=== PATIENT | male | born 1990 | race Caucasian/White ===

== ENCOUNTER 2017-10-10 20:45 | Inpatient (IN) | payer BC ==
[2017-10-10 21:44] LABS: Hematocrit 46 % (42-52); Hemoglobin 15.7 g/dl (14.0-18.0); Mean Corpuscular HGB Conc 34 g/dl (31-36); Mean Corpuscular Hemoglobin 31 pg (27-31); Mean Corpuscular Volume 89 fL (80-94); Mean Platelet Volume 7.7 um3 (7.4-10.4); Platelet Count 308 10^3/ul (150-450); Red Blood Count 5.17 10^6/ul (4.0-5.4); Red Cell Distribution Width 14 % (10.5-15); White Blood Count 9.4 10^3/ul (3.5-10.8)
[2017-10-10 21:46] LABS: Urine Appearance Clear; Urine Blood Negative (Negative); Urine Color Yellow; Urine Ketones Negative (Negative); Urine Protein Negative (Negative); Urine Specific Gravity 1.021 (1.010-1.030); Urine Urobilinogen Negative (Negative)
[2017-10-10 22:00] LABS: EGFR Non-African American 92.5 (>60)
[2017-10-10 22:20] LABS: ABS Basophils 0 10^3/ul (0-0.2); ABS Eosinophils 0.2 10^3/ul (0-0.6); ABS Monocytes 0.8 10^3/ul (0-0.8); ABS Neutrophils 5.4 10^3/ul (1.5-7.7); ABS Nucleated RBC 0 10^3/ul; Eosinophil % 2.1 % (0-6); Lymphocyte % 32.1 % (25-47); Nucleated Red Blood Cells % 0.1
[2017-10-11] MEDS ORDERED: Al Hydrox/Mg Hydrox/Simet LIQ* 30 ML UDC PO PRN (03:34)
--- NOTE | 2017-10-11 04:25 | ED ---
Reyna Saab Nilda, scribed for Andrey Melo MD on 10/10/17 at 2133 . Psychiatric Complaint - HPI Summary HPI Summary: This patient is a 65 year old M presenting to [facility] accompanied by family with a chief complaint of constant severe roseann-like symptoms for the past 3 days. Symptoms aggravated and alleviated by nothing. Patient reports chronic SI, chronic anxiety, chronic depression, hallucinations (auditory and visual), and insomnia (last slept yesterday). Patient denies HI. Father states pt was doing well, but was sick with PNA in July 2017 and has not recovered psychiatrically since. Medications include Rexulti. Pt was recently taken off of max dose Prozac (80 mg) today with plan to switch to Clozaril, as recommended by his psychiatrist. PMHx includes Schizoaffective bipolar disorder , tremors, chronic SI, and chronic anxiety. He states he saw his psychiatrist ( Dr. Epstein in [place]) a few hours ago, who advised him to come to ED and stay safe long enough for new drug to be introduced. Pt states a few weeks ago he was treated for SI in [facility], had reccurent SI after D/C, and was denied entry to psych [facility]. - History Of Current Complaint Chief Complaint: EDMentalHealth Time Seen by Provider: 10/10/17 21:14 Hx Obtained From: Patient, Family/Green Hide Inspector - father Onset/Duration: Sudden Onset Timing: Constant Severity Currently: Severe Character: Manic, Depressed, Anxious Aggravating Factor(s): Nothing Alleviating Factor(s): Nothing Associated Signs And Symptoms: Positive: Hallucinating Related History: Positive For: Prior Psychiatric Issues Has Suicidal: Reports: Thoughts Has Homicidal: Denies: Thoughts, With A Plan - Allergies/Home Medications Allergies/Adverse Reactions: Allergies Allergy/AdvReac Type Severity Reaction Status Date / Time No Known Allergies Allergy Verified 10/10/17 20:59 Home Medications: Home Medications Ashwagandha 1 tab PO DAILY 10/10/17 [History Confirmed 10/10/17] Brexpiprazole (NF) [Rexulti (NF)] 4 mg PO DAILY 10/10/17 [History Confirmed ] FLUoxetine CAP* [PROzac CAP*] 80 mg PO DAILY 10/10/17 [History Confirmed ] Magnesium Chloride EC TAB* [Slow Mag EC TAB*] 64 mg PO DAILY 10/10/17 [History Confirmed 10/10/17] Mirtazapine TAB* [Remeron TAB*] 15 mg PO BEDTIME 10/10/17 [History Confirmed ] [place]-3 Fatty Acids (Nf) [Fish Oil (NF)] 1,000 mg PO BID 10/10/17 [History Confirmed 10/10/17] clonazePAM TAB(*) [KlonoPIN TAB(*)] 0.5 mg PO QID 10/10/17 [History Confirmed ] PMH/Surg Hx/FS Hx/Imm Hx Sensory History: Denies: Hx Legally Blind EENT History: Denies: Hx Deafness Psychiatric History: Reports: Hx Anxiety, Hx Depression, Hx Community Mental Health Tx, Hx Schizophrenia, Hx Bipolar Disorder, Hx Suicide Attempt Infectious Disease History: No Infectious Disease History: Denies: Traveled Outside the [place] in Last 30 Days - Social History Lives: With Family Review of Systems Positive: Other - chronic tremors Positive: Anxious, Depressed, Other - manic, hallucination, SI, insomnia; negative HI All Other Systems Reviewed And Are Negative: Yes Physical Exam - Summary Physical Exam Summary: Appearance: Well appearing, no pain distress Skin: warm, dry, reflects adequate perfusion, No evidence of self injury Head/face: normal Eyes: EOMI, CHAVA ENT: normal Neck: supple, non-tender Respiratory: CTA, breath sounds present Cardiovascular: RRR, pulses symmetrical Abdomen: non-tender, soft Bowel: present Musculoskeletal: normal, strength/ROM intact Neuro: normal, sensory motor intact, A&Ox3, tremulous Psych: anxious, no HI, no SI, + hallucinations without paranoia Triage Information Reviewed: Yes Vital Signs On Initial Exam: Initial Vitals Temp Pulse Resp BP Pulse Ox 97.5 F 108 18 169/107 99 10/10/17 20:54 10/10/17 20:54 10/10/17 20:54 10/10/17 20:54 10/10/17 20:54 Vital Signs Reviewed: Yes Diagnostics - Vital Signs Vital Signs Temp Pulse Resp BP Pulse Ox 10/10/17 20:54 97.5 F 108 18 169/107 99 - Laboratory Lab Results: Lab Results 10/10/17 10/10/17 10/10/17 Range/Units 21:33 21:33 21:35 WBC (3.5-10.8) 10^3/ul RBC (4.0-5.4) 10^6/ul Hgb (14.0-18.0) g/dl Hct (42-52) % MCV (80-94) fL MCH (27-31) pg MCHC (31-36) g/dl RDW (10.5-15) % Plt Count (150-450) 10^3/ul MPV (7.4-10.4) um3 Neut % (Auto) (38-83) % Lymph % (Auto) (25-47) % Morehouse % (Auto) (0-7) % Eos % (Auto) (0-6) % Baso % (Auto) (0-2) % Absolute Neuts (auto) (1.5-7.7) 10^3/ul Absolute Lymphs (auto) (1.0-4.8) 10^3/ul Absolute Monos (auto) (0-0.8) 10^3/ul Absolute Eos (auto) (0-0.6) 10^3/ul Absolute Basos (auto) (0-0.2) 10^3/ul Absolute Nucleated RBC 10^3/ul Nucleated RBC % Sodium 136 L (139-145) mmol/L Potassium TNP Chloride 101 (101-111) mmol/L Carbon Dioxide 22 (22-32) mmol/L Anion Gap 13 H (2-11) mmol/L BUN 13 (6-24) mg/dL Creatinine 0.98 (0.67-1.17) mg/dL Est GFR ( Amer) 118.9 (>60) Est GFR (Non-Af Amer) 92.5 (>60) BUN/Creatinine Ratio 13.3 (8-20) Glucose 97 (70-100) mg/dL Calcium 10.0 (8.6-10.3) mg/dL Total Bilirubin 0.40 (0.2-1.0) mg/dL AST TNP ALT 95 H (7-52) U/L Alkaline Phosphatase 61 (34-104) U/L Total Protein 8.5 (6.4-8.9) g/dL Albumin 4.7 (3.2-5.2) g/dL Globulin 3.8 (2-4) g/dL Albumin/Globulin Ratio 1.2 (1-3) TSH 12.47 H (0.34-5.60) mcIU/mL Urine Color Yellow Urine Appearance Clear Urine pH 6.0 (5-9) Ur Specific Hawley 1.021 (1.010-1.030) Urine Protein Negative (Negative) Urine Ketones Negative (Negative) Urine Blood Negative (Negative) Urine Nitrate Negative (Negative) Urine Bilirubin Negative (Negative) Urine Urobilinogen Negative (Negative) Ur Leukocyte Esterase Negative (Negative) Urine Glucose Negative (Negative) Salicylates < 2.50 (<30) mg/dL Urine Opiates Screen None detected (None Detect) Acetaminophen < 15 mcg/mL Ur Barbiturates Screen None detected (None Detect) Ur Phencyclidine Scrn None detected (None Detect) Ur Amphetamines Screen None detected (None Detect) U Benzodiazepines Scrn None detected (None Detect) Urine Cocaine Screen None detected (None Detect) U Cannabinoids Screen None detected (None Detect) Serum Alcohol < 10 (<10) mg/dL 10/10/17 10/10/17 Range/Units 21:35 22:36 WBC 9.4 (3.5-10.8) 10^3/ul RBC 5.17 (4.0-5.4) 10^6/ul Hgb 15.7 (14.0-18.0) g/dl Hct 46 (42-52) % MCV 89 (80-94) fL MCH 31 (27-31) pg MCHC 34 (31-36) g/dl RDW 14 (10.5-15) % Plt Count 308 (150-450) 10^3/ul MPV 7.7 (7.4-10.4) um3 Neut % (Auto) 56.9 (38-83) % Lymph % (Auto) 32.1 (25-47) % Morehouse % (Auto) 8.4 H (0-7) % Eos % (Auto) 2.1 (0-6) % Baso % (Auto) 0.5 (0-2) % Absolute Neuts (auto) 5.4 (1.5-7.7) 10^3/ul Absolute Lymphs (auto) 3.0 (1.0-4.8) 10^3/ul Absolute Monos (auto) 0.8 (0-0.8) 10^3/ul Absolute Eos (auto) 0.2 (0-0.6) 10^3/ul Absolute Basos (auto) 0 (0-0.2) 10^3/ul Absolute Nucleated RBC 0 10^3/ul Nucleated RBC % 0.1 Sodium (139-145) mmol/L Potassium TNP Chloride (101-111) mmol/L Carbon Dioxide (22-32) mmol/L Anion Gap (2-11) mmol/L BUN (6-24) mg/dL Creatinine (0.67-1.17) mg/dL Est GFR ( Amer) (>60) Est GFR (Non-Af Amer) (>60) BUN/Creatinine Ratio (8-20) Glucose (70-100) mg/dL Calcium (8.6-10.3) mg/dL Total Bilirubin (0.2-1.0) mg/dL AST TNP ALT (7-52) U/L Alkaline Phosphatase (34-104) U/L Total Protein (6.4-8.9) g/dL Albumin (3.2-5.2) g/dL Globulin (2-4) g/dL Albumin/Globulin Ratio (1-3) TSH (0.34-5.60) mcIU/mL Urine Color Urine Appearance Urine pH (5-9) Ur Specific Hawley (1.010-1.030) Urine Protein (Negative) Urine Ketones (Negative) Urine Blood (Negative) Urine Nitrate (Negative) Urine Bilirubin (Negative) Urine Urobilinogen (Negative) Ur Leukocyte Esterase (Negative) Urine Glucose (Negative) Salicylates (<30) mg/dL Urine Opiates Screen (None Detect) Acetaminophen mcg/mL Ur Barbiturates Screen (None Detect) Ur Phencyclidine Scrn (None Detect) Ur Amphetamines Screen (None Detect) U Benzodiazepines Scrn (None Detect) Urine Cocaine Screen (None Detect) U Cannabinoids Screen (None Detect) Serum Alcohol (<10) mg/dL Result Diagrams: 10/10/17 21:35 10/10/17 22:36 Lab Statement: Any lab studies that have been ordered have been reviewed, and results considered in the medical decision making process. - EKG 2140 Cardiac Rate: Tachycardia EKG Rhythm: Sinus Tachycardia - [address] Segment: Normal EKG Interpretation: nml axis, nml interval Course/Dx - Course Course Of Treatment: Pt with shelter MH problems with dx of schizoaffective do bipolar type. Recommended by primary psychiatrist for admission and change of med to clozaril. Accepted for admission after crisis eval on voluntary basis. Assessment/Plan: 2143 Pt is medically cleared for [facility]. - Differential Dx/Clinical Impression Provider Diagnosis: Unspecified psychosis, Schizoaffective disorder, bipolar type - Physician Notifications Discussed Care Of Patient With: Ifeanyi - Associate of Dr. Brunner Psychiatry Time Discussed With Above Provider: 00:28 Instructed by Provider To: Admit As Inpatient Discharge - Sign-Out/Discharge Documenting (check all that apply): Discharge - admit to Psychiatry - Discharge Plan Condition: Stable Disposition: PSYCHIATRIC FACILITY-[facility] - Billing Disposition and Condition Condition: STABLE Disposition: HOSP-[facility] The documentation as recorded by the Reyna pickard Nilda accurately reflects the service I personally performed and the decisions made by Lorie mark Kirk, MD.
[2017-10-11] MEDS ORDERED: OLANzapine TAB* 5 MG PO SCH (09:00)
[2017-10-11] MEDS ORDERED: ALPRAZolam TAB* 0.5 MG PO ONE (09:00)
[2017-10-11] MEDS: Vitamin THERAPEUTIC TAB PO SCH (09:35)
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
[2017-10-11] MEDS ORDERED: ALPRAZolam TAB* 0.5 MG PO PRN (15:06)
[2017-10-11] MEDS: PTO:Brexpiprazole (NF) 3 MG TAB PO SCH (21:05)
[2017-10-11] MEDS: BREXPIPRAZOLE 0.5 MG PO SCH (21:06)
[2017-10-11] MEDS: Mirtazapine TAB* 15 MG PO PRN (21:08)
[2017-10-12 07:19] LABS: EGFR Non-African American 94.7 (>60)
[2017-10-12] MEDS: Acetaminophen TAB* 325 MG PO PRN (08:37)
[2017-10-12] MEDS: Vitamin THERAPEUTIC TAB PO SCH (08:38)
[2017-10-12] MEDS ORDERED: ALPRAZolam TAB* 0.5 MG PO ONE (09:00)
[2017-10-12] MEDS ORDERED: Gadoteridol* (CONTRAST) 279.3 MG/ML 10 ML IV ONE (10:18)
--- NOTE | 2017-10-12 11:05 | RAD ---
HISTORY: Psychosis, visual hallucination COMPARISONS: None TECHNIQUE: The following sequences were obtained of the head: Sagittal T1-weighted images, axial T2-weighted images, axial FLAIR images, axial susceptibility weighted images, axial T1-weighted images, coronal T1, T2 and FLAIR images through the mesial temporal lobes. Additionally, axial diffusion-weighted images were obtained with calculated apparent diffusion coefficients. Additionally, sagittal and axial T1 weighted images with thin section coronal T1-weighted images through the mesial temporal lobes were obtained after contrast enhancement with a gadolinium-based intravenous contrast agent. FINDINGS: HEMORRHAGE/INFARCT: There is no hemorrhage or acute infarct. MASSES/SHIFT: There is no mass or shift. EXTRA-AXIAL SPACES/MENINGES: There are no extra-axial fluid collections. SULCI AND VENTRICLES: The sulci and ventricles are normal in size and position for the patient's stated age. CEREBRUM: There are no focal brain parenchymal abnormalities. The mesial temporal lobes are symmetric in size, architecture, and signal intensity. The collateral white matter bundles are symmetric. The mamillary bodies and temporal horns of the lateral ventricles are symmetric in size. There is no appreciable cortical dysplasia or heterotopia. BRAINSTEM: There are no focal parenchymal abnormalities. CEREBELLUM: There are no focal parenchymal abnormalities. The cerebellar tonsils are normal in size and position. SELLA: The sella is normal. PINEAL: The pineal region is clear. CP ANGLE/TEMPORAL BONES: The labyrinthine structures are grossly normal. VESSELS: Normal flow-voids are noted within the visualized vertebral vasculature. DIFFUSION ABNORMALITIES: There are no diffusion abnormalities. PARANASAL SINUSES/MASTOIDS: The paranasal sinuses are clear. ORBITS: The orbits are unremarkable. BONES AND SOFT TISSUE: No bone or soft tissue abnormalities are noted. OTHER: There is no abnormal enhancement. IMPRESSION: UNREMARKABLE MRI OF THE BRAIN. THE MESIAL TEMPORAL LOBES ARE SYMMETRIC. THERE IS NO APPRECIABLE CORTICAL DYSPLASIA OR HETEROTOPIA. THERE IS NO ABNORMAL ENHANCEMENT.
--- NOTE | 2017-10-12 13:39 | PN ---
Subjective - Subjective Subjective: psychiatric attending progress note met with july to discuss result of his MRI which was negative. Patient was relieved but also dissappointed that the test didnt show a reason for his symptoms. EEG was also completed yesterday late in the day but results not yet available. Patient attended groups. He has been cooperative and no behavioral management issues reported. He is compliant with medications. I shared with him that I spoke with his doctor yesterday and that we coordinated treatment. If EEG is negative It is my intention to start patient on Clozaril. I have registered patient at [facility] in anticipation that EEG will be negative. MSE: patient reports mood has been close to euthymic since admission He has been experiencing intermittent infrequent AH which are computer noises. He denies grandiose or persecutory delusions at present time. His thought process is orgaized and goal directed. He denies suicidal ideation at present time He is not agitated and reports that he feels safe on this unit. insight and judgment are quite good. Labs: CBC shows ANC of 5300 CMP remarkable only for elevated ALT in 80's hep B and hep C screening labs were both negative urine tox screen negative;' Urinanalysis was negative. thyroid fucntion tests were abnormal: with TSH of >12, T4 in 4.6, free T4 of 0.67 thryroid peroxidase antibodies negative Impression: SChizoaffective Disroder bipolar type rapidly cycling rule out TLE admitted for Clozaril trial newly diagnosed hypothyroidism. TPA negative Plan: will get sonogram of thyroid to rule out mass will start synthroid 50 mcg qam will refer patient back to PCP on discharge have completed labs and ekg needed to start Clozapine
--- NOTE | 2017-10-12 16:53 | PN ---
MHU: Group Therapy Note - Service Type Service Type: [id number] Group Psychotherapy - Medication Education Group: Patient was attentive and participatory in group, and remained in good behavioral control. Patient expressed positive insights regarding relevant treatment interventions. Patient stated understanding of material discussed and had appropriate questions.
[2017-10-12] MEDS: PTO:Brexpiprazole (NF) 3 MG TAB PO SCH (21:13)
[2017-10-12] MEDS: BREXPIPRAZOLE 0.5 MG PO SCH (21:13)
[2017-10-12] MEDS: Mirtazapine TAB* 15 MG PO PRN (21:14)
[2017-10-13] MEDS: Vitamin THERAPEUTIC TAB PO SCH (08:27)
[2017-10-13] MEDS: Levothyroxine TAB* 50 MCG TAB PO SCH (08:27)
--- NOTE | 2017-10-13 10:11 | PN ---
Subjective - Subjective Subjective: Psychiatric Attending Progress Note EEG without any evidence of epileptiform activity MRI of the head negative Met with patient and shared above results. also explained to him that he is hypothyroid and discussed causes, and treatment. patient gave informed consent for syntroid 50 mcg daily denies symptoms of hypothryoidism other than lethargy. reports he was treated by Dr. Epstein in past with thryoid but that it was discontinued denies family history of thyroid cancer, hypo or hyper thryoidism MSE: well related. denies any auditory hallucinations since admission here. denies suicidal ideation at present time mood: appears euthymic. patient does report being delusional several days ago believing that his feet were having a conversation with each other. cooperative attitude. alert and fully oriented. speech normal RR and V. organized and goal directed having hypnogogic and hypnopompic hallucinations (occurr just as he is falling asleep and waking up) EKG: NSR and QTc is in 400's Impression: SAD bipolar type. rapid cycling. currently euthymic hypothyroidism Plan: start clozaril trial preclozaril workup is negative ANC is 5300 patient registered with [facility] program patient gave informed consent to start clozapine after discussion of risks/benefits. start clozapine 12.5 mg BID X 3 doses then increase to 25 mg BID will taper rexulti to 3 mg qhs remeron 15 mg qhs xanax 0.5 mg q4h prn anxiety
--- NOTE | 2017-10-13 15:11 | EEG ---
ELECTROENCEPHALOGRAPHY: DATE OF STUDY: 10/12/17 - ROOM #215 ORDERING PHYSICIAN: Dr. Aldana.* CLINICAL PROBLEM: This is a 26-year-old man who is admitted on 10/11/17 for psychosis. In addition to his psychiatric symptoms of auditory and visual hallucinations as well as delusional thinking, he has some episodes of loss of awareness where he is speaking, but does not respond like his usual self and he does not remember these episodes. Episodes were occurring daily, multiple times per day, lasting a few minutes each. EEG is requested to evaluate for epileptiform abnormalities. MEDICATIONS: 1. . 2. Alprazolam. 3. Acetaminophen. 4. Mirtazapine. 5. Maalox. 6. Theragran. REPORT: The waking background showed appropriate organization with clearly defined anterior to posterior voltage and frequency gradients. There was a well -defined posterior dominant rhythm of 9 Hz, which was symmetrical and showed normal reactivity. Anteriorly, there was an expected pattern of lower voltage, irregular, mixed faster frequencies. Attenuation of the occipital rhythm accompanied drowsiness. The sleep background was appropriately organized with well-developed sleep spindles and vertex waves. These sleep transients showed appropriate morphology and were bilaterally synchronous and symmetrical. Throughout the recording, there were no epileptiform discharges, focal features , paroxysmal features or significant interhemispheric asymmetries. CLINICAL IMPRESSION: This is a normal waking and sleep EEG. There are no epileptiform abnormalities. [id number] #: [id number] [facility]
[2017-10-13] MEDS ORDERED: ALPRAZolam TAB* 0.5 MG PO PRN (19:44)
[2017-10-13] MEDS: PTO:Brexpiprazole (NF) 3 MG TAB PO SCH (20:09)
[2017-10-13] MEDS: Mirtazapine TAB* 15 MG PO PRN (20:43)
[2017-10-13] MEDS: CloZAPine TAB* 25 MG TAB PO SCH (20:43)
[2017-10-14] MEDS: Levothyroxine TAB* 50 MCG TAB PO SCH (07:40)
[2017-10-14] MEDS: Vitamin THERAPEUTIC TAB PO SCH (09:48)
[2017-10-14] MEDS: CloZAPine TAB* 25 MG TAB PO SCH ×2 (09:48→20:41)
[2017-10-14 12:34] LABS: INR 0.82 (0.77-1.02)
[2017-10-14] MEDS: PTO:Brexpiprazole (NF) 3 MG TAB PO SCH (20:40)
[2017-10-14] MEDS: Mirtazapine TAB* 15 MG PO PRN (20:40)
[2017-10-15] MEDS: Levothyroxine TAB* 50 MCG TAB PO SCH (08:09)
[2017-10-15] MEDS: Vitamin THERAPEUTIC TAB PO SCH (09:12)
[2017-10-15] MEDS: CloZAPine TAB* 25 MG TAB PO SCH ×2 (09:12→20:40)
--- NOTE | 2017-10-15 16:33 | PN ---
Subjective - Subjective Date of Service: 10/15/17 Service Type: [id number] Hosp care 15 min low complexity Subjective: Enrike and his dad who was visiting reported that he was more depressed than the day before. During evaluation he said he was completing suicide wit multiple plans such as cutting wrist ot shooting. Was placed on continuous obs. during last night. This mormin he reports of feeling better and denied Si.HI. Tolerating Clozapine titration well. Objective - Appearance Appearance: Obese Dysmorphic Features: No Hygiene: Normal Grooming: Fairly Well Kept - Behavior Psychomotor Activities: Normal Exhibits Abnormal Movement: No - Attitude and Relatedness Attitude and Relatedness: Appropriate Eye Contact: Good - Speech Quality: Unpressured Latencies: Normal Quantity: Appropriate - Mood Patient's Decription of Mood: "Fine" - Affect Observed Affect: Depressed Affect Consistent with: Dysphoria - Thought Process Patient's Thought Process: Coherent, Goal Directed Thought Content: No Passive Wish, No Suicidal Planning, No Homicidal Ideation, No Paranoid Ideation - Sensorium Experiencing Hallucinations: No, Sensorium is Clear Type of Hallucinations: Visual: No, Auditory: No, Command: No - Level of Consciousness Level of Consciousness: Alert Orientation: Yes Intact, Yes Orientated to Time, Yes Orientated to Place, Yes Orientated to Person - Impulse Control Impulse Control: Tenuous - Insight and Judgement Insight and Judgement: Fair - Group Participation Particating in Group Activities: Yes - Medication Management Medication Management Adherence: Yes Assessment - Assessment Merits Inpatient Hospitalization: For Immediate Safety, For Stabilization, Pending Safe DC Plan Clinical Impression: Still symptomatic and unsafe for discharge. Plan - Plan Treatment Plan: Name: ENRIKE JOSEPH Birthdate: 1990 [id number] Continued Medication Management: Continue Outpt Medication Medications: Current Medications Acetaminophen (Tylenol Tab*) 650 mg PO Q4H PRN PRN Reason: PAIN or TEMP > 101 F Last Admin: 10/12/17 08:37 Dose: 650 mg Al Hydrox/Mg Hydrox/Simethicone (Maalox Plus*) 30 ml PO Q4H PRN PRN Reason: INDIGESTION Alprazolam (Xanax Tab*) 0.5 mg PO Q4H PRN PRN Reason: anxiety/agitation Brexpiprazole (Rexulti 3 Mg Tab (Nf)) 3 mg PO BEDTIME [facility]EN Last Admin: 10/14/17 20:40 Dose: 3 mg Clozapine (Clozapine Tab*) 25 mg PO BID@0900,2100 [facility] Last Admin: 10/15/17 09:12 Dose: 25 mg Levothyroxine Sodium (Synthroid Tab*) 50 mcg PO DAILY@0600 [facility] Last Admin: 10/15/17 08:09 Dose: 50 mcg Mirtazapine (Remeron Tab*) 15 mg PO BEDTIME PRN PRN Reason: SLEEP Last Admin: 10/14/17 20:40 Dose: 15 mg Multivitamins (Theragran Tab*) 1 tab PO DAILY [facility] Last Admin: 10/15/17 09:12 Dose: 1 tab - Discharge Plan Discharge Plan: Outpatient Follow Up Outpatient Program: Private Clinician(s)
[2017-10-15] MEDS: PTO:Brexpiprazole (NF) 3 MG TAB PO SCH (20:39)
[2017-10-15] MEDS: Mirtazapine TAB* 15 MG PO PRN (20:42)
[2017-10-16] MEDS: Levothyroxine TAB* 50 MCG TAB PO SCH (06:00)
[2017-10-16] MEDS: CloZAPine TAB* 25 MG TAB PO SCH ×2 (08:56→21:38)
[2017-10-16] MEDS: Vitamin THERAPEUTIC TAB PO SCH (08:56)
--- NOTE | 2017-10-16 10:05 | PN ---
Plan - Plan Treatment Plan: Name: BETSY JOSEPH Birthdate: 1990 [id number] Medications: Current Medications Acetaminophen (Tylenol Tab*) 650 mg PO Q4H PRN PRN Reason: PAIN or TEMP > 101 F Last Admin: 10/12/17 08:37 Dose: 650 mg Al Hydrox/Mg Hydrox/Simethicone (Maalox Plus*) 30 ml PO Q4H PRN PRN Reason: INDIGESTION Alprazolam (Xanax Tab*) 0.5 mg PO Q4H PRN PRN Reason: anxiety/agitation Brexpiprazole (Rexulti 3 Mg Tab (Nf)) 3 mg PO BEDTIME [facility] Last Admin: 10/15/17 20:39 Dose: 3 mg Clozapine (Clozapine Tab*) 25 mg PO BID@0900,2100 [facility] Last Admin: 10/16/17 08:56 Dose: 25 mg Levothyroxine Sodium (Synthroid Tab*) 50 mcg PO DAILY@0600 [facility] Last Admin: 10/16/17 06:00 Dose: 50 mcg Mirtazapine (Remeron Tab*) 15 mg PO BEDTIME PRN PRN Reason: SLEEP Last Admin: 10/15/17 20:42 Dose: 15 mg Multivitamins (Theragran Tab*) 1 tab PO DAILY [facility] Last Admin: 10/16/17 08:56 Dose: 1 tab
--- NOTE | 2017-10-16 10:05 | PN ---
Subjective - Subjective Subjective: Psychiatric Attending Progress note: reviewed patient's progress over weekend Monday was very difficult day due to severe depression with intrusive suicidal thoughts throughout the day. also reported low motivation, loss of energy, very hopeless the depression lifted and he reports he has felt "so much better since it lifted. reports he felt dizzy on monday and monday in the middle of the day. wonders if this was side effect of clozaril which I told him yes it could be. Has been sleeping well 7 to 8 hours per night. Father came to visit today and tells me that son has been much better monday and today. MSE: hyperverbal, mood elevated. thought process reveals racing thoughts. Thought content reports AH and VH last couple of days which he believes is related to decrease in his Rexulti dosage. denies being delusional at present time. denies SI, intent or plan. insight and judgment intact Impression: Schizoaffective disorder bipolar type currently hypomanic with active perceptual disturbances. patient is day #4 of Clozapine Induction and tolerating it well thus far. Plan: cbc with diff for ANC in AM Will increase by 50 mg tomorrow as he did well with 25 mg increase over weekend. rexulti 3 mg qhs. will not taper further at this time. other meds unchanged.
--- NOTE | 2017-10-16 11:10 | PN ---
MHU: Group Therapy Note - Service Type Service Type: [id number] Group Psychotherapy - Cognitive Behavioral Group Therapy ( CBT):Patient was attentive and participatory in CBT programming this morning, and remained in good behavioral control. Patient expressed positive insights regarding relevant treatment interventions and goals.
[2017-10-16] MEDS: PTO:Brexpiprazole (NF) 3 MG TAB PO SCH (21:36)
[2017-10-16] MEDS: Mirtazapine TAB* 15 MG PO PRN (21:38)
[2017-10-17 07:26] LABS: Hematocrit 44 % (42-52); Hemoglobin 15.3 g/dl (14.0-18.0); Mean Corpuscular HGB Conc 35 g/dl (31-36); Mean Corpuscular Hemoglobin 31 pg (27-31); Mean Corpuscular Volume 89 fL (80-94); Mean Platelet Volume 7.9 um3 (7.4-10.4); Platelet Count 241 10^3/ul (150-450); Red Blood Count 4.92 10^6/ul (4.0-5.4); Red Cell Distribution Width 14 % (10.5-15); White Blood Count 8.3 10^3/ul (3.5-10.8)
[2017-10-17] MEDS: Levothyroxine TAB* 50 MCG TAB PO SCH (07:37)
[2017-10-17 07:49] LABS: ABS Basophils 0 10^3/ul (0-0.2); ABS Eosinophils 0.4 10^3/ul (0-0.6); ABS Monocytes 0.9 10^3/ul (0-0.8); ABS Nucleated RBC 0 10^3/ul; Eosinophil % 4.4 % (0-6); Lymphocyte % 36.2 % (25-47); Nucleated Red Blood Cells % 0.1
[2017-10-17] MEDS: CloZAPine TAB* 25 MG TAB PO SCH ×2 (08:11→20:18)
[2017-10-17] MEDS: Vitamin THERAPEUTIC TAB PO SCH (08:11)
--- NOTE | 2017-10-17 10:29 | PN ---
Subjective - Subjective Subjective: Psychiatric Attending Progress Note: Clozaril increased to 50 mg BID last night. Enrike reports that he has been feeling lightheaded in mid afternoon. describes feeling "a little wobbly on my feet". BP this AM 144/88 HR 90's afebrile Patient denies abdominal pain, chest pain, sob, headache, cough, blurry vision, constipation nausea MSE: dressed in shorts and tshirt. sitting at a table writing in his journal Enrike is friendly and engages easily. speech: hyperverbal but not pressured. no loud either. patient tends to perseverate about the symptoms of his schizoaffective disorder. the illness very much defines patient and he seems to enjoy talking about his various symptoms through the years. My sense is that there is some degree of embellishment for the pupose of getting attention from the listener. He appears comfortable in occupying sick role. tells me that had VH yesterday (thought I looked far away) and today earlier he tells me that he saw a puddle of water in the middle of the floor which went away. states that he used to have VH,AH and tactile hallucinations with high frequency but this decreased considerably with Rexulti. Read his writing which was really a journal of his experiences in school and many comments abou this mental illness symptoms. mood: euthymic to hypomanic today. no SI no HI insight and judgment intact. Impression: SAD bipolar type with psychotic features admitted for induction clozaril. Patient is experiencing lightheaded feeling in mid afternnoon which may indeed be orthostatic hypotension. Plan: orthostatic BP to be done now x 1 will leave clozaril dose at 50 mg BID for now. rexulti 3 mg qhs will check bp before raising dose. CBC done today shows ANC > 4000
[2017-10-17] MEDS: Acetaminophen TAB* 325 MG PO PRN (11:02)
[2017-10-17] MEDS: PTO:Brexpiprazole (NF) 3 MG TAB PO SCH (20:17)
[2017-10-17] MEDS: Mirtazapine TAB* 15 MG PO PRN (20:18)
[2017-10-18] MEDS: Levothyroxine TAB* 50 MCG TAB PO SCH (06:30)
[2017-10-18] MEDS: Vitamin THERAPEUTIC TAB PO SCH (09:10)
[2017-10-18] MEDS: CloZAPine TAB* 25 MG TAB PO SCH ×2 (09:11→20:17)
--- NOTE | 2017-10-18 11:15 | PN ---
Subjective - Subjective Subjective: Psychiatric Attending Progress Note attending groups. patient reports past few days he feels mood is beginning to stabalize. yesterday somewhat hypomanic but today well related. great eye contact. no anxiety or agitation. speech is normal rate and volume. Thought process is relevant and on topic. not writing as he did yesterday. Father brought him a novel by \ a [employer] author which he states he will begin reading tonight. If patient can read a novel, attention span and concentration are likely improved. Did have dizziness today and yesterday. orthostatic BP revealed in increase in Heart rate from 99 to 130 and drop in systolic bp with going from sitting to standing. patient denies chest pain, SOB, ataxic gait, feeling presyncopal, weakness. denies any other side effects. no constipation. MSE: reports AH and VH today which were fleeting no SI no HI denies racing thoughts denies feeling depressed denies roseann Impression: SAD biplar type with rapid cycling Plan: continue titration of Clozapine. follow BP as patient does have dizziness and mild degree of orthostasis Increase Clozapine to 75 mg po BID Lower Rexulti to 2.5 mg qhs repeat EKG done yesterday shows QTc stable at 429
--- NOTE | 2017-10-18 11:18 | PN ---
MHU: Group Therapy Note - Service Type Service Type: [id number] Group Psychotherapy - Cognitive Behavioral Group Therapy ( CBT):Patient was attentive and participatory in CBT programming this morning, and remained in good behavioral control. Patient expressed positive insights regarding relevant treatment interventions and goals.
[2017-10-18] MEDS: Mirtazapine TAB* 15 MG PO PRN (20:14)
[2017-10-18] MEDS: CMCS: Brexpiprazole (NF) 0.5 MG TAB PO SCH (20:16)
[2017-10-19] MEDS: Levothyroxine TAB* 50 MCG TAB PO SCH (06:00)
[2017-10-19] MEDS: Vitamin THERAPEUTIC TAB PO SCH (08:17)
[2017-10-19] MEDS: CloZAPine TAB* 25 MG TAB PO SCH ×2 (08:17→20:08)
--- NOTE | 2017-10-19 13:07 | PN ---
MHU: Group Therapy Note - Service Type Service Type: [id number] Group Psychotherapy - Cognitive Behavioral Group Therapy ( CBT):Patient was attentive and participatory in CBT programming this morning, and remained in good behavioral control. Patient expressed positive insights regarding relevant treatment interventions and goals.
--- NOTE | 2017-10-19 16:34 | PN ---
MHU: Group Therapy Note - Service Type Service Type: [id number] Group Psychotherapy - Medication Education Group: Patient was attentive and participatory in group, and remained in good behavioral control. Patient expressed positive insights regarding relevant treatment interventions. Patient stated understanding of material discussed and had appropriate questions.
[2017-10-19] MEDS: CMCS: Brexpiprazole (NF) 0.5 MG TAB PO SCH (20:04)
[2017-10-19] MEDS: Docusate CAP* 100 MG PO SCH (20:08)
[2017-10-19] MEDS: Mirtazapine TAB* 15 MG PO PRN (20:09)
[2017-10-20] MEDS: Levothyroxine TAB* 50 MCG TAB PO SCH (06:05)
[2017-10-20] MEDS: Acetaminophen TAB* 325 MG PO PRN (06:05)
[2017-10-20] MEDS: CloZAPine TAB* 25 MG TAB PO SCH ×2 (10:10→20:49)
[2017-10-20] MEDS: Docusate CAP* 100 MG PO SCH ×2 (10:11→20:50)
[2017-10-20] MEDS: Vitamin THERAPEUTIC TAB PO SCH (10:11)
--- NOTE | 2017-10-20 11:59 | PN ---
Subjective - Subjective Subjective: Psychiatric Attending progress note patient continues on clozaril induction titration. currentlyl at 87.5 mg BID today. Tolerating clozapine well with tachycardia 100 to 109. orthostatic changes are minimal. feels lightheaded mid day when supine but this passes rather quickly. BP remains normotensive having regular bowel movement. denies dry mouth, denies blurry vision, dystonia, sob, chest painabdominal pain, rash. Vital Signs: Temp Pulse Resp BP Pulse Ox 97.4 F 106 16 156/85 97 10/20/17 08:44 10/20/17 08:44 10/20/17 08:44 10/20/17 08:44 10/19/17 07:10 MSE: reports that his mood has been much improved. does not feel rapid cycles from depressed to manic. much less grandiose patient continues to complain of hypnogogic and pompic hallucinations which occurr while he is close to falling asleep or waking up. he also reports increase in auditory hallucinations since admission "though not nearly what it used to be before the RExulti" He describes hearing his name called a dozen times today and also states he has had "olfactory hallucinations of a spider crawling across my arm" Patient's affect is incongruent with the severity of mental illness which he describes ie. not blunted but more smug, happy and self satisfied. he agrees with discharge for this monday Impression: schizoaffective disorder bipolar type unspecified rule out personality disorder rule out factitious disorder or at least tendency to embellish severity of symptoms with no clear secondary gain Plan: Increase Clozapine tomorrow to 100 mg BID RExulti 2.5 mg QHS d/c remeron start Temazepam 30 mg po QHS MMPI and psychological evaluation with dr. hunt prior to d/c on monday will plan to discharge in afternoon to allow time for dr. britt to evaluate patient.
--- NOTE | 2017-10-20 13:19 | PN ---
MHU: Group Therapy Note - Service Type Service Type: [id number] Group Psychotherapy - Cognitive Behavioral Group Therapy ( CBT):Patient was attentive and participatory in CBT programming this morning, and remained in good behavioral control. Patient expressed positive insights regarding relevant treatment interventions and goals.
[2017-10-20] MEDS: CMCS: Brexpiprazole (NF) 0.5 MG TAB PO SCH (20:51)
[2017-10-20] MEDS: Mirtazapine TAB* 15 MG PO PRN (21:05)
[2017-10-21] MEDS: Acetaminophen TAB* 325 MG PO PRN (07:51)
[2017-10-21] MEDS: Vitamin THERAPEUTIC TAB PO SCH (07:51)
[2017-10-21] MEDS: Levothyroxine TAB* 50 MCG TAB PO SCH (07:51)
[2017-10-21] MEDS: Docusate CAP* 100 MG PO SCH ×2 (07:52→20:22)
[2017-10-21] MEDS: CloZAPine TAB* 100 MG TAB PO SCH ×2 (07:52→20:23)
[2017-10-21] MEDS: CMCS: Brexpiprazole (NF) 0.5 MG TAB PO SCH (20:21)
[2017-10-21] MEDS: Temazepam CAP* 15 MG PO SCH (20:22)
[2017-10-22] MEDS: Levothyroxine TAB* 50 MCG TAB PO SCH (07:37)
[2017-10-22] MEDS: Docusate CAP* 100 MG PO SCH ×2 (08:05→20:07)
[2017-10-22] MEDS: CloZAPine TAB* 100 MG TAB PO SCH ×2 (08:05→20:07)
[2017-10-22] MEDS: Vitamin THERAPEUTIC TAB PO SCH (08:06)
[2017-10-22] MEDS: CMCS: Brexpiprazole (NF) 0.5 MG TAB PO SCH (20:02)
[2017-10-22] MEDS: Temazepam CAP* 15 MG PO SCH (20:02)
[2017-10-23 06:38] LABS: Hematocrit 43 % (42-52); Hemoglobin 14.7 g/dl (14.0-18.0); Mean Corpuscular HGB Conc 34 g/dl (31-36); Mean Corpuscular Hemoglobin 31 pg (27-31); Mean Corpuscular Volume 89 fL (80-94); Mean Platelet Volume 7.8 um3 (7.4-10.4); Platelet Count 252 10^3/ul (150-450); Red Blood Count 4.77 10^6/ul (4.0-5.4); Red Cell Distribution Width 14 % (10.5-15); White Blood Count 6.6 10^3/ul (3.5-10.8)
[2017-10-23 06:46] LABS: ABS Basophils 0 10^3/ul (0-0.2); ABS Eosinophils 0.3 10^3/ul (0-0.6); ABS Lymphocytes 1.9 10^3/ul (1.0-4.8); ABS Monocytes 0.7 10^3/ul (0-0.8); ABS Neutrophils 3.7 10^3/ul (1.5-7.7)
[2017-10-23 07:41] VITALS: BP 139/87
[2017-10-23 07:41] LABS: ABS Nucleated RBC 0 10^3/ul; Eosinophil % 4.3 % (0-6); Lymphocyte % 29.2 % (25-47); Nucleated Red Blood Cells % 0
[2017-10-23] MEDS: Docusate CAP* 100 MG PO SCH (08:35)
[2017-10-23] MEDS: CloZAPine TAB* 100 MG TAB PO SCH (08:35)
[2017-10-23] MEDS: Levothyroxine TAB* 50 MCG TAB PO SCH (08:35)
[2017-10-23] MEDS: Vitamin THERAPEUTIC TAB PO SCH (08:35)
--- NOTE | 2017-10-23 10:46 | DS ---
Discharge Planning - Discharge Planning Medications: Current Medications Acetaminophen (Tylenol Tab*) 650 mg PO Q4H PRN PRN Reason: PAIN or TEMP > 101 F Last Admin: 10/21/17 07:51 Dose: 650 mg Al Hydrox/Mg Hydrox/Simethicone (Maalox Plus*) 30 ml PO Q4H PRN PRN Reason: INDIGESTION Alprazolam (Xanax Tab*) 0.5 mg PO Q4H PRN PRN Reason: anxiety/agitation Last Admin: 10/20/17 02:05 Dose: 0.5 mg Brexpiprazole (Rexulti 0.5 Mg Tab (Nf)) 2.5 mg PO BEDTIME [facility] Last Admin: 10/22/17 20:02 Dose: 2.5 mg Clozapine (Clozapine Tab*) 100 mg PO BID@ [facility] Last Admin: 10/23/17 08:35 Dose: 100 mg Docusate Sodium (Colace Cap*) 100 mg PO BID@ [facility] Last Admin: 10/23/17 08:35 Dose: 100 mg Levothyroxine Sodium (Synthroid Tab*) 50 mcg PO DAILY@0600 [facility] Last Admin: 10/23/17 08:35 Dose: 50 mcg Multivitamins (Theragran Tab*) 1 tab PO DAILY [facility] Last Admin: 10/23/17 08:35 Dose: 1 tab Temazepam (Restoril Cap*) 30 mg PO BEDTIME [facility] Last Admin: 10/22/17 20:02 Dose: 30 mg Discharge Planning: Prescriptions provided for discharge [] Yes [] No Follow up care details as per social work arrangements. Patient response to discharge plan: [] eager for discharge [] agreeable with discharge plan [] ambivalent about discharge [] disagrees with discharge today
== END 2017-10-23 13:45 | disposition home or self-care (01) | DRG 750 ==
LOC: ED 20:45 → BSU 10-11 01:04
PROVIDERS: ADMIT Psychiatry & Neurology Psychiatry; ATTEND Psychiatry & Neurology Psychiatry
PROC: 4A10X4Z Monitoring of Central Nervous Electrical Activity, External Approach (ICD-10-PCS; principal; 2017-10-12)
PROC: GZHZZZZ Group Psychotherapy (ICD-10-PCS; 2017-10-12)
DX: F25.0 Schizoaffective disorder, bipolar type (principal); R45.851 Suicidal ideations; R25.1 Tremor, unspecified; F41.9 Anxiety disorder, unspecified; E03.9 Hypothyroidism, unspecified; E66.9 Obesity, unspecified; R00.0 Tachycardia, unspecified; R42 Dizziness and giddiness; F42.9 Obsessive-compulsive disorder, unspecified; Z68.36 Body mass index [BMI] 36.0-36.9, adult; Z91.5 Personal history of self-harm; Z56.0 Unemployment, unspecified; Z81.8 Family history of other mental and behavioral disorders
CPT/HCPCS: 36415; 70553; 80053; 80061; 80076; 80307; 80320; 80329; 81003; 82248; 82607; 82746; 83036; 83520; 83735; 84436; 84439; 84443; 84479; 85014; 85025; 85610; 85730; 86376; 86706; 86803; 87340; 90853; 93005; 95819; 99222; 99231; 99238; 99285; A9270-GY; A9579; G0480